=== PATIENT | female | born 1985 | race Caucasian/White ===

== ENCOUNTER 2020-04-09 08:01 | Emergency (ER) | payer MEDICAID ==
[~2020-04-09] VITALS: Ht 160 cm; Wt 54.4 kg
[~2020-04-09 08:01] MED LIST: PREN27TA7 OR
[2020-04-09] MEDS ORDERED: SODIUM CHLORIDE 0.9% 1,000 ML IVB ONE (08:30)
[2020-04-09 08:50] LABS: Basophils # (auto) 0 10 ^3/uL (0-0.2); Basophils % (auto) 0.8 % (0.0-2.0); Eosinophils # (auto) 0.2 10 ^3/uL (0-0.8); Eosinophils % (auto) 3.2 % (0.0-7.0); Hematocrit 41.9 % (36.0-46.0); Hemoglobin 13.6 g/dL (12.2-16.2); Lymphocytes # (auto) 2.2 10 ^3/uL (0.4-5.4); Lymphocytes % (auto) 42.7 % (10.0-50.0); Mean Corpuscular Hemoglobin 28.2 pg (28.0-32.0); Mean Corpuscular Hgb Conc. 32.5 g/dL (32.0-36.0); Mean Corpuscular Volume 86.7 fL (80.0-100.0); Monocytes # (auto) 0.4 10 ^3/uL (0-1.3); Monocytes % (auto) 7.2 % (0.0-12.0); Neutrophils # (auto) 2.4 10 ^3/uL (1.6-8.6); Neutrophils % (auto) 46.1 % (37.0-80.0); Nucleated Red Blood Cells % 0.1 %; Platelet Count (auto) 273 10^3/uL (140-450); Red Blood Cells 4.84 10^6/uL (4.0-5.20); Red Cell Distribution Width 13.1 % (11.8-14.3); White Blood Cell 5.2 10^3/uL (4.4-10.8)
[2020-04-09 09:04] LABS: Albumin 3.8 g/dL (3.4-5.0); Calcium 8.4 mg/dL (8.5-10.1); Potassium 3.5 mmol/L (3.5-5.1)
[2020-04-09 09:09] LABS: BUN/Creatinine Ratio 17.6; Bilirubin, Total 0.2 mg/dL (0.2-1.0); Total Protein 7.1 g/dL (6.4-8.2)
[2020-04-09 14:03] LABS: Urine Bacteria NONE SEEN /hpf (None Seen); Urine Blood 1+ /uL (Negative); Urine Mucus FEW (None Seen); Urine Specific Gravity 1.014 (1.001-1.035); Urine WBC 46 /hpf (0 - 5); Urine WBC Clumps PRESENT /hpf (None Seen)
[2020-04-09 14:16] LABS: Amphetamine Screen, Urine POSITIVE (NEGATIVE); Barbiturate Scree,Urine NEGATIVE (NEGATIVE); Benzodiazephine Screen, Urine NEGATIVE (NEGATIVE); Cannabinoid Screen, Urine NEGATIVE (NEGATIVE); Cocaine Screen, Urine NEGATIVE (NEGATIVE); Opiate Scree,Urine NEGATIVE (NEGATIVE); Phencyclidine Screen, Urine NEGATIVE (NEGATIVE)
[2020-04-09] MEDS ORDERED: cefTRIAXone 1GM/50ML D5W 50 ML IV ONE (17:30)
[2020-04-09 19:00] VITALS: BP 120/81
== END 2020-04-09 20:37 | disposition home or self-care (01) ==
LOC: EDBD 08:01 → ER 08:01
DX: R41.82 Altered mental status, unspecified (principal); F10.920 Alcohol use, unspecified with intoxication, uncomplicated; N39.0 Urinary tract infection, site not specified; F15.10 Other stimulant abuse, uncomplicated
CPT/HCPCS: 36415; 80053; 80307; 80320; 81001; 82962; 83690; 83735; 84702; 85025; 96361; 96365; 99284; J0696

== ENCOUNTER 2023-12-21 04:16 | Emergency (ER) | payer MEDICAID ==
[~2023-12-21] VITALS: Ht 162.6 cm; Wt 54.6 kg
[2023-12-21] MEDS ORDERED: CEPH500C PO (04:43)
[2023-12-21] MEDS ORDERED: IBUP1TAB5 PO (04:43)
[2023-12-21] MEDS: CEPHALEXIN 250 MG CAP PO ONE (06:13)
[2023-12-21] MEDS: HYDROcodone-ACET 5/325MG TAB PO ONE (06:13)
[2023-12-21 06:26] VITALS: BP 146/87; PULSE 87; RESP 16; TEMP 98.7; O2SAT 100
== END 2023-12-21 06:26 | disposition home or self-care (01) ==
LOC: ER 04:16
DX: K02.9 Dental caries, unspecified (principal); K04.7 Periapical abscess without sinus; F17.210 Nicotine dependence, cigarettes, uncomplicated

== ENCOUNTER 2024-11-01 01:20 | Emergency (ER) | payer MEDICAID ==
[~2024-11-01] VITALS: Ht 162.6 cm; Wt 56.4 kg
[~2024-11-01 01:20] MED LIST changes: +CEPH500C PO; +IBUP1TAB5 PO
[2024-11-01] MEDS ORDERED: METH4PAK PO (04:17)
[2024-11-01] MEDS ORDERED: AUG875T PO (04:17)
--- NOTE | 2024-11-01 04:18 | ED.PDOC ---
Eye-HPI HPI Comments C/C of sore throat x3 days. States she went to Dr. Burris and was swabbed for strep throat, negative. Pt states throat still feels sore. Took Benadryl with no relief. No s/s of distress noted. Pt states she smokes 7 cigarettes daily. Chief Complaint: Sore Throat Time Seen by MD: 01:30 Primary Care Provider: ASHLEY Reviewed Notes: Nurses Notes, Medications, Allergies Allergies: Coded Allergies: NO KNOWN ALLERGIES (Unverified , 10/30/13) Home Meds Active Scripts Ibuprofen Micronized (Ibuprofen) 600 Mg Tab, 1 TAB PO Q6HPRN PRN, #20 TAB as needed for pain Prov:ANDERSON,NORALDA Q CHAIR TRIMMER 12/21/23 Cephalexin Monohydrate (Cephalexin) 500 Mg Cap, 1 CAP PO QID for 10 Days, #40 CAP Prov:ANDERSON,NORALDA Q CHAIR TRIMMER 12/21/23 Reported Medications Vit W/ Ferrous Fumara () 1 Tab Tab, 1 TAB OR DAILY, TAB 10/30/13 Mode of Arrival: Ambulatory Past Medical History PAST MEDICAL HISTORY: Denies Surgical History: Denies all surgeries [employer] History: No Pertinent [employer] History Family History Family History: Reviewed,noncontributory to illness Social History Smoker: Cigarettes Alcohol: Heavy Drugs: Denies Drug Use Lives In: Home Constitutional: reports: fever; denies: chills, diaphoresis, fatigue, malaise, sweats, weakness, others EENTM: reports: throat pain, throat swelling; denies: blurred vision, double vision, ear bleeding, ear discharge, ear drainage, ear pain, ear ringing, eye pain, eye redness, hearing loss, mouth pain, mouth swelling, nasal discharge, nose bleeding, nose congestion, nose pain, photophobia, tearing, voice changes, others Respiratory: denies: cough, hemoptysis, orthopnea, SOB at rest, shortness of breath, SOB with excertion, stridor, wheezing, others Cardiovascular: denies: chest pain, dizzy spells, diaphoresis, Dyspnea on exertion, edema, irregular heart beat, left arm pain, lightheadedness, pa lpitations, PND, syncope, others Gastrointestinal: denies: abdomen distended, abdominal pain, blood streaked bowels, constipated, diarrhea, dysphagia, difficulty swallowing, hematemesis, melena, nausea, poor appetite, poor fluid intake, rectal bleeding, rectal pain, vomiting, others Genitourinary: denies: abnormal vagina bleeding, burning, dyspareunia, dysuria, flank pain, frequency, hematuria, incontinence, pain, , vagina discharge, urgency, others Neurological: denies: dizziness, fainting, headache, left sided numbness, left sided weakness, numbness, paresthesia, pre-existing deficit, right sided numbness, right sided weakness, seizure, speech problems, tingling, tremors, weakness, others Musculoskeletal: denies: back pain, gout, joint pain, joint swelling, muscle pain, muscle stiffness, neck pain, others Integumetry: denies: bruises, change in color, change in hair/nails, dryness, laceration, lesions, lumps, rash, wounds, others Allergic/Immunocompromised: denies: Difficulty Healing, Frequent Infections, Hives, Itching, others Hematologic/Lymphatic: denies: anemia, blood clots, easy bleeding, easy bruising, swollen glands, others Endocrine: denies: excessive hunger, excessive sweating, excessive thirst, excessive urination, flushing, intolerance to cold, intolerance to heat, unexplained weight gain, unexplained weight loss, others Psychiatric: denies: anxiety, bipolar disorder, depression, hopeless, panic disorder, schizophrenia, sleepless, suicidal, others Physical Exam General Appearance: No Apparent Distress, Normal HEENT: Pharyngeal Erythema Neck: Full Range of Motion, Non-Tender Respiratory: Lungs Clear, No Respiratory Distress, Normal Breath Sounds Cardiovascular: No Edema, No JVD, No Murmur, No Gallop, Normal Peripheral Pulses, Regular Rate/Rhythm Breast Exam: Deferred Gastrointestinal: Non Tender, Soft Genitalia: Deferred Pelvic: Deferred Rectal: Deferred Extremities: Normal capillary refill, Normal inspection, Normal range of motion, Non-tender, No pedal edema Musculoskeletal : Apperance: Normal Neurologic: Alert, 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 Was a procedure done?: No EENT DIFF Eye: N/A Ear: Pharyngitis Sore Throat: Navjot's Angina, Peritonsillar Abscess, Peritonsillar Cellulitis, Pharyngitis, Streptococcal, Viral Pharyngitis, URI X-Ray, Labs, Meds, VS Vital Signs Date Time Temp Pulse Resp B/P (MAP) Pulse Ox O2 Delivery O2 Flow Rate FiO2 11/01/24 01:20 99.3 103 16 156/108 (124) 0 99.3 X-Ray, Labs, Meds, VS Comment LIKELY BACTERIAL. PATIENT GIVEN DECADRON 10 MG IM FOR THE PAIN AND SWELLING. SCRIPT TRIAL OF AUGMENTIN TWICE DAILY X7 DAYS ADVISED ON SIDE EFFECTS TAKE MEDICATIONS PRESCRIBED. REST INCREASE P.O. FLUIDS WITH ELECTROLYTES. CONSIDER POPSICLES AVOID HOT AND SPICY FOOD WHILE WITH INFECTION. FOLLOW UP WITH YOUR PCP IN 2 DAYS NECESSARY. ER RETURN PRECAUTIONS GIVEN PATIENT INDICATES UNDERSTANDING AND AGREES WITH DISCHARGE PLAN OF CARE. Time of 1ST Reevaluation: 04:14 Reevaluation 1ST: Improved Time of 2ND Reevaluation: 04:15 Reevaluation 2ND: Improved Patient Education/Counseling: Diagnosis, Treatment, Prognosis, Need For Follow Up Family Education/Counseling: No Family Present Departure 1 Departure Time of Disposition: 04:16 Impression: Primary Impression: Pharyngitis Qualified Codes: J02.9 - Acute pharyngitis, unspecified Disposition: 01 HOME / SELF CARE / HOMELESS Condition: Stable e-Prescriptions Methylprednisolone (Medrol Dosepak) 4 Mg Jorge 4 MG PO UD for 6 Days, #21 TAB UAD Prov: JOCELYNN SAVAGE 11/01/24 Amoxicillin & Pot Clavulanate (AUGMENTIN TABLET) 875 Mg Tb 875 MG PO BID for 7 Days, #14 TAB Prov: JOCELYNN SAVAGE 11/01/24 Discharged With: Self Critical Care Note Critical Care Time?: No Stability Stability form required: No JOCELYNN SAVAGE November 01, 2024 04:18
[2024-11-01 04:32] VITALS: BP 141/98; PULSE 98; RESP 18; TEMP 99.1; O2SAT 99
== END 2024-11-01 04:39 | disposition home or self-care (01) ==
LOC: ER 01:20
DX: J02.9 Acute pharyngitis, unspecified (principal); F17.210 Nicotine dependence, cigarettes, uncomplicated

== ENCOUNTER 2025-06-01 06:42 | Emergency (ER) | payer MEDICAID ==
[~2025-06-01] VITALS: Ht 162.6 cm; Wt 55.6 kg
[2025-06-01] MEDS ORDERED: AMOX500T3 PO (07:32)
[2025-06-01 07:39] VITALS: BP 144/99; PULSE 98; RESP 16; TEMP 98.7; O2SAT 98
--- NOTE | 2025-06-01 07:39 | ED.PDOC ---
Eye-HPI HPI Comments 39 year old female presents to the ED with pain and suspected infection in the left upper quadrant of the mouth onset 3 days. The patient reported having pain in the left upper quadrant of the mouth that started a couple of days ago. The pain was intermittent and became more frequent over time. The patient had been using Tylenol and numbing agents like Oragel, which only provided limited relief, causing a burning sensation. The patient suspected the area was infected and possibly abscessing, suggesting that an antibiotic like amoxicillin might be necessary. Eating, particularly hot or cold food, aggravated the pain. The patient experienced referred pain as an earache and reported cold-like symptoms and a sensation of bubbling in the ear. The patient reported not having a fever. The patient mentioned a possible history of high blood pressure without a formal diagnosis. The patient used tobacco daily and did not consume alcohol or recreational drugs. The last dental exam was a couple of years ago, and the patient expressed fear and uncertainty about finding a good dentist. Denies fever chills Denies nausea vomiting diarrhea Denies headache dizziness blurred vision Denies sore throat shortness of breath Chief Complaint: Tooth Pain Time Seen by MD: 07:20 Primary Care Provider: ASHLEY Bravo Notes: Medications, Allergies Allergies: Uncoded Allergies: OPIATES (Allergy, Unknown, 06/01/25) Home Meds Active Scripts Amoxicillin Trihydrate (Amoxicillin) 500 Mg Tab, 1 TAB PO BID for 10 Days, #20 TAB 0 Refills Prov:MAGNOLIA ORELLANA COUNT TEAM MEMBER 06/01/25 Ibuprofen Micronized (Ibuprofen) 600 Mg Tab, 1 TAB PO Q6HPRN PRN, #20 TAB as needed for pain Prov:SCOTT ANDERSON COUNT TEAM MEMBER 12/21/23 Cephalexin Monohydrate (Cephalexin) 500 Mg Cap, 1 CAP PO QID for 10 Days, #40 CAP Prov:SCOTT ANDERSON COUNT TEAM MEMBER 12/21/23 Reported Medications Vit W/ Ferrous Fumara () 1 Tab Tab, 1 TAB OR DAILY, TAB 10/30/13 Information Source: Patient Mode of Arrival: Ambulatory Timing: Days Duration: Since onset Prehospital treatment: None Quality: Pain Associated signs and symptoms: Tooth Pain Past Medical History PAST MEDICAL HISTORY: Denies Surgical History: Denies all surgeries [employer] WORKER History: No Pertinent [employer] WORKER History Family History Family History: Reviewed,noncontributory to illness Social History Smoker: Cigarettes Alcohol: Heavy Drugs: Denies Drug Use Lives In: Home All Other Systems: Reviewed and Negative (as per HPI) Physical Exam General Appearance: No Apparent Distress, Normal, Other (Patient appeared non- toxic and non-ill.) HEENT: Head (Normocephalic and atraumatic.), Normal ENT Inspection, Pharynx Normal, TMs Normal, Other ( Moist mucous membranes, uvula midline, no airway obstruction. Tooth number sixteen exhibited localized tenderness to palpation without surrounding erythema or gingivitis. Notable dental caries and fillings were present throughout the bilateral upper and lower teeth.) Neck: Full Range of Motion, Non-Tender, Normal, Normal Inspection Respiratory: Chest Non-Tender, Lungs Clear, No Accessory Muscle Use, No Respiratory Distress, Normal Breath Sounds Cardiovascular: No Edema, No JVD, No Murmur, No Gallop, Normal Peripheral Pulses, Regular Rate/Rhythm Breast Exam: Deferred Gastrointestinal: No Organomegaly, Non Tender, No Pulsatile Mass, Normal Bowel Sounds, Soft Genitalia: Deferred Pelvic: Deferred Rectal: Deferred Extremities: No calf tenderness, Normal capillary refill, Normal inspection, Normal range of motion, Non-tender, No pedal edema Musculoskeletal : Apperance: Normal Neurologic: Alert, 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 Was a procedure done?: No EENT DIFF Eye: Other X-Ray, Labs, Meds, VS Vital Signs Date Time Temp Pulse Resp B/P (MAP) Pulse Ox O2 Delivery O2 Flow Rate FiO2 06/01/25 07:39 98.7 98 16 144/99 (114) 98 98.7 06/01/25 07:39 98 16 98 Room Air 06/01/25 06:48 98.0 103 16 153/108 99 98.0 X-Ray, Labs, Meds, VS Comment 39 year old female presents to the ED with pain and suspected infection in the left upper quadrant of the mouth onset 3 days. Patient arrives alert and oriented, ABC's intact, afebrile, vital signs stable, saturating well in room air ASSESSMENT: 1. Possible dental infection or abscess: The patient presented with pain in the left upper quadrant of the mouth, increased frequency of symptoms, and a sensation of bubbling in the ear, suggesting a possible infection or dental abscess. The patient reported that the pain was aggravated by eating and suggested that antibiotics might be beneficial. 2. Possible dental caries: The presence of notable dental caries and fillings in the upper and lower teeth may contribute to the patient's symptoms and should be evaluated further. AFEBRILE, VITALS WITHIN NORMAL LIMITS. EXAM ABOVE AND AIRWAY FULLY PATENT AND IN NO RESPIRATORY DISTRESS. THE PATIENT HAS NO NECK SWELLING, NO DYSPHONIA OR HOARSENESS, NO LYMPHADENOPATHY. NO TRISMUS OR SWOLLEN TONGUE TO SUGGEST KARINA'S ANGINA. NO OVERT E/O PERITONSILLAR ABSCESS OR RETROPHARYNGEAL ABSCESS. NO OVERT E/O DEEP SPACE INFECTION; NONTOXIC APPEARING AND TOLERATING PO. NON-FOCAL NEURO EXAM WITH LOW SUSPICION FOR LEMIERRES. NO PAIN WITH PERCUSSION, LOW SUSPICION FOR PERIAPICAL ABSCESS. NO MASTOID TENDERNESS SO DO NOT SUSPECT MASTOIDITIS AND NO PAIN WITH MANIPULATION OF EAR TO SUGGEST OTITIS EXTERNA. TRIAL ANTIBIOTICS WITH CAUTIOUS RETURN PRECAUTIONS DISCUSSED W/ FULL UNDERSTANDING. Additional MDM Review of External, Non-ED records: External records reviewed. Discussion with independent historian (EMS, family) history obtained from the patient/parents (if applicable) at bedside Chronic conditions affecting care: None Social determinants of health affecting care: None Consideration of admission (observation or admission): I considered escalation of care to admission for this patient, however given the reassuring workup, the patient is safe for outpatient management. Time of 1ST Reevaluation: 07:50 Reevaluation 1ST: Improved Patient Education/Counseling: Diagnosis, Treatment Family Education/Counseling: No Family Present SEPSIS Sepsis Screen Date sepsis recognized/suspect: Jun 01, 2025 Time Sepsis recognized/suspect: 0650 Recent Procedure: No On Antibiotic Therapy: No Respiratory Rate >20: No Heart Rate >90: No Temp<36 C (96.8 F) or >38.3 C: No SBP <90 or MAP <65 mmHG: No New Acute Mental Status Change: No Is the patient on CPAP, BIPAP,: No Vital Signs Date Time Temp Pulse Resp B/P (MAP) Pulse Ox O2 Delivery O2 Flow Rate FiO2 06/01/25 07:39 98.7 98 16 144/99 (114) 98 98.7 06/01/25 07:39 98 16 98 Room Air 06/01/25 06:48 98.0 103 16 153/108 99 98.0 Departure 1 Departure Time of Disposition: 07:31 Impression: Primary Impression: Tooth pain Disposition: HOME / SELF CARE / HOMELESS Condition: Stable Additional Instructions: Discharge Note: Continue on your medications. Do not drive when taking narcotics. Drink plenty of fluids. Follow up with your primary DENTIST. Take your prescriptions as ordered. If your condition becomes worse call and follow up with your primary Dr. for instructions or return to the ER if needed. Thank you for visiting [facility]. e-Prescriptions Amoxicillin Trihydrate (Amoxicillin) 500 Mg Tab 1 TAB PO BID for 10 Days, #20 TAB 0 Refills Prov: MAGNOLIA ORELLANA NP 06/01/25 Discharged With: Self Critical Care Note Critical Care Time?: No Stability Stability form required: No Heart Score Heart Score: Heart Score Response (Comments) Value History N/A 0 EKG N/A 0 Age N/A 0 Risk Factors N/A 0 Troponin N/A 0 Total 0 I personally scribed for MAGNOLIA ORELLANA NP ([email or web address]) on 06/01/25 at 07:38. Electronically submitted by Radha Arnold ([email or web address]). MAGNOLIA ORELLANA NP Jun 01, 2025 07:38
== END 2025-06-01 07:42 | disposition home or self-care (01) ==
LOC: ER 06:45
DX: K08.89 Other specified disorders of teeth and supporting structures (principal); F10.90 Alcohol use, unspecified, uncomplicated; F17.210 Nicotine dependence, cigarettes, uncomplicated; Z79.899 Other long term (current) drug therapy; Z88.5 Allergy status to narcotic agent